=== PATIENT | female | born 1990 | race African-American/Black ===

== ENCOUNTER 2017-09-02 13:15 | Emergency (ER) | payer MEDICAID, OTHER ==
[~2017-09-02] VITALS: Ht 167.6 cm; Wt 64.4 kg
[2017-09-02 13:30] VITALS: BP 93/55
[2017-09-02] MEDS ORDERED: SODIUM CHLORIDE 0.9% 1,000 ML IVB ONE (13:57)
== END 2017-09-02 15:55 | disposition left against medical advice (07) ==
LOC: ER 13:22
DX: R10.9 Unspecified abdominal pain (principal); Z53.21 Procedure and treatment not carried out due to patient leaving prior to being seen by health care provider

== ENCOUNTER 2018-07-20 11:16 | Emergency (ER) | payer OTHER ==
[~2018-07-20] VITALS: Ht 170.2 cm; Wt 57.3 kg
[2018-07-20 11:28] VITALS: BP 94/69
[2018-07-20] MEDS ORDERED: IBUPROFEN 800 MG TAB PO ONE (12:15)
== END 2018-07-20 12:16 | disposition home or self-care (01) ==
LOC: ER 11:16
DX: J03.90 Acute tonsillitis, unspecified (principal)

== ENCOUNTER 2018-07-23 13:28 | Emergency (ER) | payer OTHER ==
[~2018-07-23] VITALS: Ht 170.2 cm; Wt 49.9 kg
[2018-07-23 13:33] VITALS: BP 92/59
== END 2018-07-23 17:25 | disposition left against medical advice (07) ==
LOC: ER 13:28
DX: J02.9 Acute pharyngitis, unspecified (principal); Z53.21 Procedure and treatment not carried out due to patient leaving prior to being seen by health care provider